=== PATIENT | male | born 1975 | race Caucasian/White ===

== ENCOUNTER 2022-06-19 07:12 | Outpatient (CLI) | payer OTHER | END 2022-06-19 07:18 | disposition home or self-care (01) | LOC: LAB 07:12 | PROVIDERS: ATTEND Obstetrics & Gynecology | DX: Z20.828 Contact with and (suspected) exposure to other viral communicable diseases (principal) ==

== ENCOUNTER 2022-11-11 19:56 | Emergency (ER) | payer OTHER ==
[~2022-11-11] VITALS: Ht 182.9 cm; Wt 88.5 kg
[2022-11-11] MEDS ORDERED: LOSARTAN POTAS100 MG PO (20:20)
[2022-11-11] MEDS ORDERED: PROZAC40 MG PO (20:20)
== END 2022-11-11 22:15 | disposition home or self-care (01) ==
LOC: ER 19:56
DX: S89.82XA Other specified injuries of left lower leg, initial encounter (principal); X58.XXXA Exposure to other specified factors, initial encounter; Y93.F9 Activity, other caregiving; Y92.89 Other specified places as the place of occurrence of the external cause